=== PATIENT | male | born 1965 ===

== ENCOUNTER 2020-05-30 16:11 | Inpatient (IN) ==
[2020-05-30] MEDS ORDERED: [UNRECOGNIZED DRUG - OTHER] TOP PRN (20:26)
[2020-05-30] MEDS ORDERED: DEXTROSE 50% 25 GM/50 ML VIAL IV PRN (20:35)
[2020-05-30] MEDS ORDERED: hydrALAZINE 20 MG/1 ML VIAL IV PRN (20:35)
[2020-05-30] MEDS ORDERED: ONDANSETRON 4 MG/2 ML VIAL IV PRN (20:35)
[2020-05-30] MEDS ORDERED: ACETAMINOPHEN 325 MG TABLET PO PRN (20:35)
[2020-05-30] MEDS ORDERED: GLUCAGON 1 MG VIAL IM PRN (20:35)
[2020-05-30] MEDS: SIMVASTATIN 20 MG TABLET PO SCH (21:10)
[2020-05-30] MEDS: INSULIN LISPRO 100 UNIT/ML SUBCUT SCH (21:10)
[2020-05-31 02:06] LABS: Protein/Creatinine Ratio,Urine 13.4 RATIO
[2020-05-31 04:23] LABS: Basophils # 0.1 10*3/uL (0.0-0.2); Basophils % 0.9 % (0.0-0.8); Eosinophils # 0.5 10*3/uL (0.0-0.87); Eosinophils % 7.4 % (0.00-10.9); Hematocrit 26.9 VOL% (42.0-52.0); Hemoglobin 9.1 GM/DL (14.0-18.0); Immature Granulocytes % 0.1 %; Immature Granulocytes Absolute 0.01 #; Lymphocytes # 1.1 10*3/uL (1.4-4.0); Lymphocytes % 16.6 % (21.2-54.2); Mean Corpuscular HGB Conc 33.8 GM/DL (32-36); Mean Corpuscular Volume 87.1 FL (87-102); Mean Platelet Volume 11.1 FL (9.6-12.0); Monocytes % 9.2 % (1.7-12.7); Neutrophils % 65.8 % (38.7-73.9); Platelet Count 199 T/CUMM (130-400); Red Blood Count 3.09 MC/CUMM (3.8-5.5); Red Cell Distribution Width 13.2 % (9.3-17.3); White Blood Count 6.9 T/CUMM (4-12)
[2020-05-31 04:57] LABS: Albumin 1.6 G/DL (3.4-5.0); Calcium 7.5 MG/DL (8.5-10.1); Osmolality,Calculated 300.4 MOS/KG (273-304); Potassium 3.8 MMOL/L (3.5-5.1); Risk Ratio 2.82; Thyroid Stimulating Hormone 3.71 uIU/ml (0.358-3.74); Total Protein 5.6 G/DL (6.4-8.3); VLDL CHOLESTEROL 20.6 MG/DL
[2020-05-31] MEDS: INSULIN LISPRO 100 UNIT/ML SUBCUT SCH ×4 (09:04→20:47)
[2020-05-31] MEDS: ASPIRIN EC 81 MG TABLET PO SCH (09:05)
[2020-05-31] MEDS: ISOSORBIDE MONONITRATE 30 MG TABLET PO SCH (09:05)
[2020-05-31] MEDS: sitaGLIPtin 25 MG TABLET PO SCH (09:05)
[2020-05-31] MEDS: SIMVASTATIN 20 MG TABLET PO SCH (20:26)
[2020-06-01 06:46] LABS: Calcium 7.6 MG/DL (8.5-10.1); Osmolality,Calculated 301.4 MOS/KG (273-304); Potassium 3.6 MMOL/L (3.5-5.1)
[2020-06-01 06:51] LABS: Alanine Aminotransferase < 9 U/L (16-61); Albumin 1.7 G/DL (3.4-5.0); Alkaline Phosphatase 104 U/L (45-117); Aspartate Amino Transferase 12 U/L (0-37); Blood Urea Nitrogen 75 MG/DL (7-18); Calcium 7.4 MG/DL (8.5-10.1); Carbon Dioxide 22 MMOL/L (21-32); Estimated Glom Filtration Rate 8 ML/MIN; Glucose 116 MG/DL (74-106); Osmolality,Calculated 301.4 MOS/KG (273-304); Potassium 3.5 MMOL/L (3.5-5.1); Sodium 140 MMOL/L (136-145); Total Protein 5.4 G/DL (6.4-8.3); Uric Acid 11.7 MG/DL (3.5-7.2)
[2020-06-01 06:52] LABS: Basophils # 0.1 10*3/uL (0.0-0.2); Basophils % 0.7 % (0.0-0.8); Eosinophils # 0.7 10*3/uL (0.0-0.87); Eosinophils % 9.6 % (0.00-10.9); Hematocrit 25.2 VOL% (42.0-52.0); Hemoglobin 8.4 GM/DL (14.0-18.0); Immature Granulocytes % 0.3 %; Immature Granulocytes Absolute 0.02 #; Lymphocytes # 1.2 10*3/uL (1.4-4.0); Lymphocytes % 16.2 % (21.2-54.2); Mean Corpuscular HGB Conc 33.3 GM/DL (32-36); Mean Corpuscular Volume 87.2 FL (87-102); Mean Platelet Volume 11.3 FL (9.6-12.0); Monocytes % 8.5 % (1.7-12.7); Neutrophils % 64.7 % (38.7-73.9); Platelet Count 210 T/CUMM (130-400); Red Blood Count 2.89 MC/CUMM (3.8-5.5); Red Cell Distribution Width 12.9 % (9.3-17.3); White Blood Count 7.1 T/CUMM (4-12)
[2020-06-01 07:14] LABS: Parathyroid Hormone Intact 429.7 PG/ML (18.4-80.1)
[2020-06-01] MEDS: INSULIN LISPRO 100 UNIT/ML SUBCUT SCH ×4 (08:06→20:46)
[2020-06-01] MEDS: sitaGLIPtin 25 MG TABLET PO SCH (09:03)
[2020-06-01] MEDS: ISOSORBIDE MONONITRATE 30 MG TABLET PO SCH (09:04)
[2020-06-01] MEDS: ASPIRIN EC 81 MG TABLET PO SCH (09:04)
[2020-06-01] MEDS: SIMVASTATIN 20 MG TABLET PO SCH (20:46)
[2020-06-02 06:54] LABS: Basophils # 0.1 10*3/uL (0.0-0.2); Basophils % 0.9 % (0.0-0.8); Eosinophils # 0.8 10*3/uL (0.0-0.87); Eosinophils % 10.6 % (0.00-10.9); Hematocrit 26.1 VOL% (42.0-52.0); Hemoglobin 8.9 GM/DL (14.0-18.0); Immature Granulocytes % 0.4 %; Immature Granulocytes Absolute 0.03 #; Lymphocytes # 1.3 10*3/uL (1.4-4.0); Lymphocytes % 17.1 % (21.2-54.2); Mean Corpuscular HGB Conc 34.1 GM/DL (32-36); Mean Corpuscular Volume 85.6 FL (87-102); Mean Platelet Volume 11.2 FL (9.6-12.0); Platelet Count 226 T/CUMM (130-400); Red Blood Count 3.05 MC/CUMM (3.8-5.5); Red Cell Distribution Width 12.8 % (9.3-17.3); White Blood Count 7.8 T/CUMM (4-12)
[2020-06-02 07:11] LABS: Calcium 7.5 MG/DL (8.5-10.1); Osmolality,Calculated 301.4 MOS/KG (273-304); Potassium 3.8 MMOL/L (3.5-5.1)
[2020-06-02 07:15] LABS: % Iron Saturation 33.2 % (18-50); Ferritin 182.2 ng/ml (26-388)
[2020-06-02] MEDS: INSULIN LISPRO 100 UNIT/ML SUBCUT SCH ×4 (07:27→20:44)
[2020-06-02 07:43] LABS: Total Protein 5.7 G/DL (6.4-8.3)
[2020-06-02] MEDS: CHOLECALCIFEROL 5,000 UNIT TABLET PO SCH (08:41)
[2020-06-02] MEDS: ASPIRIN EC 81 MG TABLET PO SCH (08:41)
[2020-06-02] MEDS: ISOSORBIDE MONONITRATE 30 MG TABLET PO SCH (08:41)
[2020-06-02] MEDS: sitaGLIPtin 25 MG TABLET PO SCH (08:41)
[2020-06-02 09:34] LABS: Amorphous Crystals,Urine Occasional /HPF (Few); Bacteria,Urine Occasional /HPF (Few); Bilirubin,Urine Negative (Negative); Blood, Urine Negative (Negative); Glucose,Urine (UA) 150 mg/dL (Negative); Ketones,Urine Negative (Negative); Nitrite,Urine Negative (Negative); Protein,Urine >=500 MG/DL; RBC,Urine <1 /HPF (0-4); Urine Appearance CLEAR (Clear); Urine Color Straw (Yellow); Urine Specific Gravity 1.009 (1.001-1.035); Urine Urobilinogen < 2.0 EU/DL (0.2-1.0); WBC,Urine 1 /HPF (0-6)
[2020-06-02] MEDS: SIMVASTATIN 20 MG TABLET PO SCH (20:44)
[2020-06-03 06:08] LABS: Basophils # 0.1 10*3/uL (0.0-0.2); Basophils % 0.8 % (0.0-0.8); Eosinophils # 0.9 10*3/uL (0.0-0.87); Eosinophils % 10.3 % (0.00-10.9); Hematocrit 27.9 VOL% (42.0-52.0); Hemoglobin 9.6 GM/DL (14.0-18.0); Immature Granulocytes % 0.5 %; Immature Granulocytes Absolute 0.04 #; Lymphocytes # 1.7 10*3/uL (1.4-4.0); Lymphocytes % 18.9 % (21.2-54.2); Mean Corpuscular HGB Conc 34.4 GM/DL (32-36); Mean Corpuscular Volume 84.8 FL (87-102); Mean Platelet Volume 11.2 FL (9.6-12.0); Monocytes % 8.2 % (1.7-12.7); Neutrophils % 61.3 % (38.7-73.9); Platelet Count 241 T/CUMM (130-400); Red Blood Count 3.29 MC/CUMM (3.8-5.5); Red Cell Distribution Width 12.8 % (9.3-17.3); White Blood Count 8.8 T/CUMM (4-12)
[2020-06-03 06:22] LABS: Calcium 7.8 MG/DL (8.5-10.1); Osmolality,Calculated 302.4 MOS/KG (273-304); Potassium 3.9 MMOL/L (3.5-5.1)
[2020-06-03 07:58] LABS: Immunoglobulin A (Chem) 249 MG/DL (70-400); Immunoglobulin G (Chem) 1190 MG/DL (700-1600); Immunoglobulin M (Chem) 135 MG/DL (40-230); Total Protein (Chem) 5.7 G/DL (6.4-8.3)
[2020-06-03 08:05] LABS: Eosinophils 8 % (0-10); Hypochromasia 1+; Lymphocytes 17 % (20-55); Microcytosis 1+; Ovalocytes Slight; Platelet Estimate Adequate; Segmented Neutrophils 64 % (50-85); Total Cells Counted 100
[2020-06-03] MEDS: CHOLECALCIFEROL 5,000 UNIT TABLET PO SCH (09:09)
[2020-06-03] MEDS: sitaGLIPtin 25 MG TABLET PO SCH (09:09)
[2020-06-03] MEDS: ISOSORBIDE MONONITRATE 30 MG TABLET PO SCH (09:09)
[2020-06-03] MEDS: ASPIRIN EC 81 MG TABLET PO SCH (09:09)
[2020-06-03] MEDS: SEVELAMER CARBONATE 800 MG TABLET PO SCH ×3 (09:10→17:25)
[2020-06-03] MEDS: INSULIN LISPRO 100 UNIT/ML SUBCUT SCH ×4 (09:11→21:14)
[2020-06-03 09:15] LABS: Albumin (SPE) 2.7 G/DL (3.2-5.3); Albumin (SPE) Rel % 46.9 %; Alpha 1 (SPE) 0.2 G/DL (0.1-0.4); Alpha 1 (SPE) Rel % 3.5 %; Alpha 2 (SPE) 0.9 G/DL (0.4-1.0); Alpha 2 (SPE) Rel % 15.9 %; Beta (SPE) 0.7 G/DL (0.5-1.1); Beta (SPE) Rel % 11.5 %; Gamma (SPE) 1.3 G/DL (0.7-1.7); Gamma (SPE) Rel % 22.2 %
[2020-06-03] MEDS: SIMVASTATIN 20 MG TABLET PO SCH (21:13)
[2020-06-04] MEDS ORDERED: ceFAZolin 2,000 MG in PREMIX 1 EACH IV ONE (07:11)
[2020-06-04] MEDS: ASPIRIN EC 81 MG TABLET PO SCH (08:12)
[2020-06-04] MEDS: sitaGLIPtin 25 MG TABLET PO SCH (08:12)
[2020-06-04] MEDS: CHOLECALCIFEROL 5,000 UNIT TABLET PO SCH (08:12)
[2020-06-04] MEDS: ISOSORBIDE MONONITRATE 30 MG TABLET PO SCH (08:12)
[2020-06-04] MEDS: allopurinoL 100 MG TABLET PO SCH (08:12)
[2020-06-04] MEDS: SEVELAMER CARBONATE 800 MG TABLET PO SCH ×3 (08:12→17:08)
[2020-06-04 09:40] LABS: Immuno Free Light Chain Kappa 16.95 MG/DL (0.33-1.94); Immuno Free Light Chain Lambda 14.72 MG/DL (0.57-2.63); Immuno Free Light Chain Ratio 1.15 MG/DL (0.26-1.65)
[2020-06-04] MEDS: INSULIN LISPRO 100 UNIT/ML SUBCUT SCH ×4 (10:14→22:07)
[2020-06-04] MEDS: SIMVASTATIN 20 MG TABLET PO SCH (20:38)
[2020-06-05 06:01] LABS: Basophils # 0.1 10*3/uL (0.0-0.2); Basophils % 0.9 % (0.0-0.8); Eosinophils # 0.8 10*3/uL (0.0-0.87); Eosinophils % 10.6 % (0.00-10.9); Hematocrit 26.3 VOL% (42.0-52.0); Hemoglobin 8.8 GM/DL (14.0-18.0); Immature Granulocytes % 0.3 %; Immature Granulocytes Absolute 0.02 #; Lymphocytes # 1.3 10*3/uL (1.4-4.0); Lymphocytes % 16.8 % (21.2-54.2); Mean Corpuscular HGB Conc 33.5 GM/DL (32-36); Mean Corpuscular Volume 86.8 FL (87-102); Mean Platelet Volume 11.6 FL (9.6-12.0); Monocytes % 8.9 % (1.7-12.7); Neutrophils % 62.5 % (38.7-73.9); Platelet Count 228 T/CUMM (130-400); Red Blood Count 3.03 MC/CUMM (3.8-5.5); Red Cell Distribution Width 12.9 % (9.3-17.3); White Blood Count 7.7 T/CUMM (4-12)
[2020-06-05 06:14] LABS: Calcium 7.8 MG/DL (8.5-10.1); Osmolality,Calculated 305.3 MOS/KG (273-304); Potassium 4.1 MMOL/L (3.5-5.1)
[2020-06-05] MEDS ORDERED: ceFAZolin 2,000 MG in PREMIX 1 EACH IV ONE (06:30)
[2020-06-05] MEDS ORDERED: BUPIVACAINE MPF 0.25% 30 ML VIAL ONE (07:03)
[2020-06-05] MEDS ORDERED: LIDOCAINE 1%/EPI INJ 20 ML VIAL ONE (07:03)
[2020-06-05] MEDS ORDERED: TISSUE ADHESIVE 1 EACH APPLICATOR TOP ONE (07:03)
[2020-06-05] MEDS ORDERED: HEPARIN 5,000 UNIT/1 ML VIAL ONE (07:03)
[2020-06-05] MEDS: INSULIN LISPRO 100 UNIT/ML SUBCUT SCH ×4 (07:22→22:31)
[2020-06-05] MEDS ORDERED: fentaNYL 100 MCG/2 ML VIAL ONE (07:39)
[2020-06-05] MEDS ORDERED: MIDAZOLAM 2 MG/2 ML VIAL ONE (07:39)
[2020-06-05] MEDS ORDERED: LIDOCAINE 2% 5 ML VIAL ONE (07:39)
[2020-06-05] MEDS ORDERED: propofoL 200 MG/20 ML VIAL IV ONE (07:39)
[2020-06-05 07:41] LABS: Creatinine,Urine Random 75 MG/DL; Total Protein,Urine Random 617 MG/DL
[2020-06-05] MEDS ORDERED: ceFAZolin 1,000 MG VIAL ONE (08:25)
[2020-06-05] MEDS: ISOSORBIDE MONONITRATE 30 MG TABLET PO SCH (09:47)
[2020-06-05] MEDS: sitaGLIPtin 25 MG TABLET PO SCH (09:47)
[2020-06-05] MEDS: ASPIRIN EC 81 MG TABLET PO SCH (09:47)
[2020-06-05] MEDS: CHOLECALCIFEROL 5,000 UNIT TABLET PO SCH (09:48)
[2020-06-05] MEDS: allopurinoL 100 MG TABLET PO SCH (09:48)
[2020-06-05] MEDS: SEVELAMER CARBONATE 800 MG TABLET PO SCH ×3 (09:48→16:41)
[2020-06-05] MEDS: SIMVASTATIN 20 MG TABLET PO SCH (22:31)
[2020-06-06 05:39] LABS: Basophils % 0.5 % (0.0-0.8); Eosinophils # 0.9 10*3/uL (0.0-0.87); Eosinophils % 10.7 % (0.00-10.9); Hematocrit 24.5 VOL% (42.0-52.0); Hemoglobin 8.2 GM/DL (14.0-18.0); Immature Granulocytes % 0.4 %; Immature Granulocytes Absolute 0.03 #; Lymphocytes # 1.1 10*3/uL (1.4-4.0); Lymphocytes % 13.6 % (21.2-54.2); Mean Corpuscular HGB Conc 33.5 GM/DL (32-36); Monocytes % 7.6 % (1.7-12.7); Neutrophils % 67.2 % (38.7-73.9); Platelet Count 228 T/CUMM (130-400); Red Blood Count 2.85 MC/CUMM (3.8-5.5)
[2020-06-06 05:57] LABS: Calcium 7.8 MG/DL (8.5-10.1); Osmolality,Calculated 303.3 MOS/KG (273-304); Potassium 4.4 MMOL/L (3.5-5.1)
[2020-06-06] MEDS: CHOLECALCIFEROL 5,000 UNIT TABLET PO SCH (08:49)
[2020-06-06] MEDS: ISOSORBIDE MONONITRATE 30 MG TABLET PO SCH (08:49)
[2020-06-06] MEDS: ASPIRIN EC 81 MG TABLET PO SCH (08:49)
[2020-06-06] MEDS: allopurinoL 100 MG TABLET PO SCH (08:49)
[2020-06-06] MEDS: SEVELAMER CARBONATE 800 MG TABLET PO SCH ×2 (08:49→12:41)
[2020-06-06] MEDS: sitaGLIPtin 25 MG TABLET PO SCH (08:50)
[2020-06-06] MEDS: INSULIN LISPRO 100 UNIT/ML SUBCUT SCH ×2 (08:50→12:35)
[2020-06-06 12:16] VITALS: BP 175/86
== END 2020-06-06 13:25 | disposition home or self-care (01) | DRG 264 ==
LOC: INTOOBSV 18:00 → SUATTDRO 18:00 → N.5E 18:00
PROVIDERS: ADMIT Internal Medicine; ATTEND Hospitalist
PROC: VAVDCFI (2020-06-05 07:55)